=== PATIENT | male | born 1940 | race Caucasian/White ===

== ENCOUNTER 2016-07-10 12:48 | Inpatient (IN) | payer MEDICARE, BC ==
[~2016-07-10] VITALS: Ht 180.3 cm; Wt 82.7 kg
[2016-07-10] VITALS (22 sets, daily range): BP systolic 112–153; BP diastolic 58–90; Ht 180.3 cm; Wt 82.7 kg
[2016-07-10 13:48] LABS: BASOPHILS 0.3 % (0.0-2.0); EOSINOPHILS 0.2 % (0-7); HEMATOCRIT 47.9 % (42.0-54.0); HEMOGLOBIN 16.3 g/dL (13.5-17.5); IMMATURE GRANULOCYTES 0.3 % (0-5); MCH 32.7 pg (26.0-34.0); MEAN PLATELET VOLUME 11.2 fL (7.4-10.4); MONOCYTES 3.9 % (2-11); NEUTROPHILS 79.3 % (40-80); PLATELET COUNT 172 10x3/uL (130-400); RBC 4.99 10x6/uL (4.20-6.10); WBC 9.9 10x3/uL (4.8-10.8)
[2016-07-10 13:59] LABS: APTT 25.1 SECONDS (22.8-39.4); INR 0.95 (0.85-1.17); PROTIME 12.6 SECONDS (11.6-15.0)
[2016-07-10 14:06] LABS: ALBUMIN 4.3 g/dL (3.4-5.0); ANION GAP 10.8 mmol/L (8-16); BILIRUBIN - TOTAL 0.65 mg/dL (0.2-1.3); CALCIUM 9.4 mg/dL (8.5-10.1); CARBON DIOXIDE 32.1 mmol/L (21.0-32.0); CREATININE - SERUM 1.2 mg/dL (0.6-1.3); POTASSIUM - SERUM 3.9 mmol/L (3.5-5.1); PROTEIN - SERUM 8.2 g/dL (6.4-8.2)
--- NOTE | 2016-07-10 16:17 | NUR ---
REC'ED PT VIA STRETCHER FROM ER - PT C/O SLIGHT HEADACHE - IV INFUSING PER MAR
--- NOTE | 2016-07-10 16:40 | NUR ---
ASSESSMENT COMPLETE PAGED DR. SAUCEDA - RTRN CALL - INFORMED PT WAS ADMITED AND PT AND FAMILY AGREES PT IS A DNR REVIEWED HOME MEDS WITH MD. STATED TO RESTART HOME MEDS - RECONCILED MEDS PER POLICY. VSS PT DENIES ANY NEEDS AT THIS TIME. CONT POC
[2016-07-10] MEDS ORDERED: LIPITOR20 MG PO (16:41)
[2016-07-10] MEDS ORDERED: GLUCOTROL 5 MG T5 MG PO (16:41)
[2016-07-10] MEDS ORDERED: ALTACE10 MG PO (16:56)
--- NOTE | 2016-07-10 17:30 | NUR ---
DR. SAUCEDA AT BEDSIDE FOR ASSESSMENT - REC'D ORDERS (SEE MAR), MRI, ETC. SEE MD FLOW SHEET. MEDICATIONS GIVEN - PT RESTING
--- NOTE | 2016-07-10 18:00 | NUR ---
FAMILY AT BEDSIDE - BROUGHT PT'S PERSONAL CPAP FOR PT USE. HOWEVER, PT DID NOT HAVE A MASK. ASKED RESPIRATORY THEARPIST TO REVIEW IF PT COULD USE [facility] MASK. RT INSTRUCTED THIS RN TO ASK FAMILY TO TAKE CPAP HOME. FAMILY AGREED. SON ASKED IF PT COULD HAVE ATIVAN AT BEDTIME TO ALLOW HIM TO CALM DOWN TO REST. EXPLAINED MD IS R/O CVA A DEPRESSANT WOULD NOT BE NEEDED AT THIS TIME. PT AND SON VERBALIZED UNDERSTANDING. WILL FORWARD REQUEST TO ONCOMING RN IN REPORT. SON ANSWERED QUESTIONS FOR MRI PROCEDURE.
--- NOTE | 2016-07-10 18:26 | NUR ---
Patient Name: FLASH FONG Admission Status: ER Accout number: [id number] Admission Date: 07-10-2016 : 1940 Admission Diagnosis: HTN CRISIS Attending: DANYA Current LOS: 1 Anticipated DC Date: 07/13/16 Planned Disposition: Primary Insurance: MEDICARE A & B Discharge Planning Comments: CM met with patient to complete initial discharge assessment. Patient gave consent to complete assessment. Patient lives home alone and is independent in his care at home. He denied using any community resources. He stated he plans to return home at discharge and does not feel he will have any needs. Cm will continue to follow and assist as needed with dc plans/needs. Manager Of Investigations: Vani Gale Is the patient Alert and Oriented? Yes * How many steps to enter\exit or inside your home? none * PCP Dr. Cook * Pharmacy [facility] * Preadmission Environment Home Alone * ADLs Independent * Equipment CPAP Glucometer * Other Equipment patent does not wear his CPAP * List name and contact numbers for known caregivers / representatives who currently or will assist patient after discharge: Flash Fong JrErica - [facility] - [phone] * Community resources currently utilized None * Additional services required to return to the preadmission environment? No * Can the patient safely return to the preadmission environment? Yes * Has this patient been hospitalized within the prior 30 days at any hospital? No
--- NOTE | 2016-07-10 18:37 | NUR ---
SON STATED PT HAS HISTORY OF ASBESTOS IN HIS LUNGS. WANTED MD TO KNOW
--- NOTE | 2016-07-10 18:42 | NUR ---
MRI X-RAY TECH TO SPEAK TO SON TO ASK MRI ASSESSMENT QUESTIONS. SON AGREEABLE TO REVIEW.
--- NOTE | 2016-07-10 19:10 | NUR ---
ASSESSMENT COMPLETED. SEE ASSESSMENT VIA ADMIT ASSESSMENT PLACED IN COMPUTER AT 2020. O2 2LPM/NC. PUPILS PERRLA AT 3MM BILATERALLY. HAND GRAPS STRONG AND EQUAL BILATERALLY. DORSI-PLANTAR FLEXION STRONG AND EQUAL. SMILE SYMMETRICAL. DENIES NUMBNESS OR TINGLING. REPORTS HEADACHE-SEE FLOWSHEET. RT FA 20G PIV NOT INFUSING ANYTHING CURRENTLY. CLEVIPREX GTT OFF. WILL MONITOR.
--- NOTE | 2016-07-10 20:21 | NUR ---
DOCUMENTED ADMIT ASSESSMENT AT THIS TIME BUT ACTUAL ASSESSMENT TIME 1909.
--- NOTE | 2016-07-10 20:45 | NUR ---
FSBS ASSESSED. SUGAR-205. INSULIN GIVEN PRESCRIBED TO LEFT ARM. HAVING SOME EXPRESSIVE APHAGIA WHEN TELLING ME HE KNEW IT WOULD BE HIGH (HIS SUGAR) BECAUSE AND PAUSED TO THINK. TOOK LIPITOR WITH WATER WITHOUT DIFFICULTY OR COUGHING. WILL MONITOR.
--- NOTE | 2016-07-10 22:30 | NUR ---
EYES CLOSED. NO ACUTE DISTRESS NOTED. WILL MONITOR.
--- NOTE | 2016-07-10 23:05 | NUR ---
REASSESSMENT COMPLETED. SEE ASSESSMENT FLOWSHEET. NEURO ASSESSMENT UNCHANGES. AT TIMES TAKES A MINUTE TO GET HIS WORDS OUT BUT OTHERWISE NEURO INTACT. WILL MONITOR.
[2016-07-11] VITALS (13 sets, daily range): BP systolic 112–142; BP diastolic 70–89
--- NOTE | 2016-07-11 00:45 | NUR ---
NEEDING UP TO BSC TO HAVE A BM. ASSISTED. STEADY GAIT NOTED. NO BM. EMPTIED URINAL AND BSC OF CLEAR, ELEANOR URINE. BACK TO BED. NO OTHER NEEDS AT PRESENT.
--- NOTE | 2016-07-11 02:19 | NUR ---
EYES CLOSED. NO ACUTE DISTRESS NOTED. WILL MONITOR.
--- NOTE | 2016-07-11 03:20 | NUR ---
REASSESSMENT COMPLETED. SEE ASSESSMENT. NO NEURO CHANGES AT THIS TIME. REPORTS THE BED IS NOT COMFORTABLE. OFFERED BEDSIDE CHAIR. DENIED. WILL CONTINUE TO MONITOR.
--- NOTE | 2016-07-11 05:00 | NUR ---
EYES CLOSED. NO ACUTE DISTRESS NOTED. WILL MONITOR.
[2016-07-11 05:16] LABS: BASOPHILS 0.1 % (0.0-2.0); EOSINOPHILS 0.9 % (0-7); HEMATOCRIT 44.4 % (42.0-54.0); IMMATURE GRANULOCYTES 0.2 % (0-5); LYMPHOCYTES 27.2 % (15-50); MCH 32.2 pg (26.0-34.0); MCHC 33.8 g/dL (31.0-37.0); MCV 95.3 fL (80.0-100.0); MEAN PLATELET VOLUME 11.7 fL (7.4-10.4); MONOCYTES 13.1 % (2-11); NEUTROPHILS 58.5 % (40-80); PLATELET COUNT 173 10x3/uL (130-400); RBC 4.66 10x6/uL (4.20-6.10); RDW 13.2 % (11.5-14.5)
[2016-07-11 05:57] LABS: ALBUMIN 3.6 g/dL (3.4-5.0); ANION GAP 10.8 mmol/L (8-16); BILIRUBIN - TOTAL 0.6 mg/dL (0.2-1.3); CALCIUM 8.6 mg/dL (8.5-10.1); CARBON DIOXIDE 29.7 mmol/L (21.0-32.0); CHOL - HDL RATIO 4.8 ratio (2.3-4.9); CREATININE - SERUM 1.1 mg/dL (0.6-1.3); LDL-HDL RATIO 2.4 ratio (1.5-3.5); POTASSIUM - SERUM 3.5 mmol/L (3.5-5.1); PROTEIN - SERUM 7.1 g/dL (6.4-8.2)
--- NOTE | 2016-07-11 07:00 | NUR ---
REC'D CARE OF PT. A&O X3. NO NEURO DEFICITS.
--- NOTE | 2016-07-11 08:40 | NUR ---
TO MRI FOR MRI OF BRAIN.
--- NOTE | 2016-07-11 09:03 | NUR ---
FAMILY AT BEDSIDE. UPDATED.
--- NOTE | 2016-07-11 09:08 | NUR ---
BACK FROM MRI AND HOOKED UP TO CM.
--- NOTE | 2016-07-11 09:12 | NUR ---
SATTING 97% ON RA.
--- NOTE | 2016-07-11 09:46 | NUR ---
ON RA SATTING 97%. RR 20, SHALLOW EVEN AND UNLABORED. STRENGHT STRONG AND EQUAL IN UPPER EXT AND STRONG AND EQUAL IN LOWER EXT. NO NEURO DEFICITS. GETS SELF UP AND SETS ON SOB. DENIES NEEDS. RIGHT FOREARM PIV SL. NO S/S OF INFECTION. OR INFILTRATION. A&O X4. PPP. CLWR. CPOC.
--- NOTE | 2016-07-11 10:45 | NUR ---
OOB TO BEDSIDE COMMODE. HAD SMEAR OF A STOOL. 50 CC URINE.
--- NOTE | 2016-07-11 11:02 | NUR ---
AMBULATED 250 FEET WITH PT AND BACK IN CHAIR.
[2016-07-11] MEDS ORDERED: LOW DOSE ASPIRI81 M1 PO (12:52)
--- NOTE | 2016-07-11 13:56 | NUR ---
REVIEWED DISCHARGE INSTRUCTIONS AND HOME MEDS. DANE REVIEWED CHART. EVERYTHING READY FOR HIM TO GO HOME. DC'D RIGHT FOREARM PIV.
== END 2016-07-11 14:27 | disposition home or self-care (01) | DRG 305 ==
LOC: D.ER 12:48 → D.ICU 15:39
PROVIDERS: Emergency Medicine; ADMIT Family Medicine
DX: I16.0 Hypertensive urgency (principal); R47.01 Aphasia; E78.5 Hyperlipidemia, unspecified; Z66 Do not resuscitate; E11.9 Type 2 diabetes mellitus without complications; I25.10 Atherosclerotic heart disease of native coronary artery without angina pectoris

== ENCOUNTER 2016-07-11 18:06 | Emergency (ER) | payer MEDICARE, BC ==
[2016-07-10 20:21] VITALS: BMI 25.4
[~2016-07-11 18:06] MED LIST: ALTACE10 MG PO; GLUCOTROL 5 MG T5 MG PO; LIPITOR20 MG PO; LOW DOSE ASPIRI81 M1 PO
== END 2016-07-11 19:14 | disposition home or self-care (01) ==
LOC: D.ER 18:06
DX: I10 Essential (primary) hypertension (principal); E11.9 Type 2 diabetes mellitus without complications; E78.5 Hyperlipidemia, unspecified

== ENCOUNTER → 2016-08-24 07:30 | Outpatient (CLI) | payer MEDICARE, BC ==
[2016-07-10 20:21] VITALS: BMI 25.4
== END | disposition home or self-care (01) ==
LOC: D.RAD 07:30
DX: R11.10 Vomiting, unspecified (principal)

== ENCOUNTER → 2016-12-08 13:38 | Outpatient (CLI) | payer MEDICARE, BC ==
[2016-07-10 20:21] VITALS: BMI 25.4
== END | disposition home or self-care (01) ==
LOC: D.CT 13:38
DX: R10.9 Unspecified abdominal pain (principal)

== ENCOUNTER → 2017-01-20 15:17 | Outpatient (CLI) | payer MEDICARE ==
[2016-07-10 20:21] VITALS: BMI 25.4
== END | disposition home or self-care (01) ==
LOC: D.LABREF 15:17
DX: R31.9 Hematuria, unspecified (principal)

== ENCOUNTER 2017-02-17 05:33 | Day surgery (SDC) | payer MEDICARE, BC ==
[2017-02-16 13:48] LABS: HEMATOCRIT 42.2 % (42.0-54.0); HEMOGLOBIN 14.4 g/dL (13.5-17.5); MCH 33.2 pg (26.0-34.0); MCHC 34.1 g/dL (31.0-37.0); MCV 97.2 fL (80.0-100.0); MEAN PLATELET VOLUME 10.8 fL (7.4-10.4); RBC 4.34 10x6/uL (4.20-6.10); RDW 13.5 % (11.5-14.5); WBC 5.8 10x3/uL (4.8-10.8)
[2017-02-16 14:05] LABS: ANION GAP 13.7 mmol/L (8-16); CALCIUM 8.8 mg/dL (8.5-10.1); CARBON DIOXIDE 29.8 mmol/L (21.0-32.0); CREATININE - SERUM 1.5 mg/dL (0.6-1.3); POTASSIUM - SERUM 4.5 mmol/L (3.5-5.1)
[~2017-02-17] VITALS: Ht 180.3 cm; Wt 88.0 kg
[~2017-02-17 05:33] MED LIST changes: +ACTOS45 MG PO; +LISINOPRIL10 MG PO; +THORAZINE25 MG PO
[2017-02-17 06:57] VITALS: BP 129/71; Ht 180.3 cm; Wt 88.0 kg
--- NOTE | 2017-02-17 12:29 | OP ---
PATIENT NAME: RICKI FONG MEDICAL RECORD: [id number] :39 LOCATION:[facility] ADMISSION DATE: SURGEON: RALPH RENEE MD DATE OF OPERATION: 02/17/2017 SURGEON: Ralph Renee MD. ANESTHESIA: MAC by Araceli Rodriguez CRNA. PREOPERATIVE DIAGNOSIS: Right renal stone, 8 mm. PROCEDURES: Cystoscopy and bladder stone removal. FINDINGS: Obstructive prostate with median lobe and bladder neck obstruction. Heavily trabeculated bladder with diverticula and a 7-8 mm bladder stone. Unable to find the ureteral orifices due to bleeding from prostatic veins. Radiodense right lower pole renal stone. SPECIMEN: Bladder stone. ESTIMATED BLOOD LOSS: Minimal. CLINICAL HISTORY: This is a 76-year-old male with a prior history of microhematuria and kidney stones. CT scan shows a distal esophagitis, sigmoid diverticulosis, degenerative disc disease of the lumbar spine. He also has an 8-mm right lower pole renal stone, which is not obstructive. The prostate is enlarged and there are stones in the prostate. His PSA is 3.05. He does have significant voiding problems including daytime frequency and nocturia times 3. He has hesitancy in getting started and a very slow flow. He feels that he is not fully emptying his bladder. He comes now to have cystoscopy to complete his hematuria workup as well as insertion of right ureteral stent and right ESWL of the renal stone later today. He is not allergic to any medication. He was given Ancef 2 grams IV contracts paralegal to the OR. DESCRIPTION OF PROCEDURE: The patient was given IV sedation. He was placed in the dorsal lithotomy position, prepped and draped. A 21-American cystoscope with 30-degree lens was used for visualization. Findings of cystoscopy are as outlined above. Once we passed the scope through the rather vascular prostate, he started having bleeding into the bladder which made the vision inside the bladder very difficult. The bladder was also very heavily trabeculated and it was virtually impossible to find his ureteral orifice. The stone was seen. Flexible grasping forceps were placed and they were able to trap the stone. The stone was too large to pass through the cystoscope and so the whole unit had to be removed with the stone still in the grasper. The stone was sent to pathology for stone analysis. Going back into the bladder, I attempted to irrigate out the bladder several times and trying to find the ureteral orifice, but I was unsuccessful. No bladder tumors were seen. He will have to have the lithotripsy done and pass the stone fragments without benefit of a stent. At a later date, he will need a TURP of his prostate. TRANSINT:[id number] Voice Confirmation ID: [id number] DOCUMENT ID: [id number] OPERATIVE REPORT [id number] RICKI FONG, RALPH Topete MD at 1229 CC: [id number] DICTATION DATE: 02/17/1736 SHREDDED FILLER HOPPER FEEDER: 02/17/17 1036 [facility] [address] [place] [id number]
--- NOTE | 2017-02-17 14:10 | OP ---
PATIENT NAME: RICKI FONG MEDICAL RECORD: [id number] :39 LOCATION:[facility] ADMISSION DATE: SURGEON: RALPH RENEE MD DATE OF OPERATION: 02/17/2017 SURGEON: Ralph Renee MD. ANESTHESIA: MAC by Liliya Ferris CRNA. PREOPERATIVE DIAGNOSIS: Right renal stone, 8 mm. POSTOPERATIVE DIAGNOSIS: Right renal stone, 8 mm. FINDINGS: Radiodense right renal stone. PROCEDURE: Right ESWL times 3000 shocks. BLOOD LOSS: None. CLINICAL HISTORY: This is a 76-year-old male with an 8-mm right renal stone. Earlier today, he underwent cystoscopy with the view to try to place a right ureteral stent. I was unable to place a right ureteral stent. A bladder stone was noted from obstructive BPH and the bladder stone was removed instead. He comes now to have the kidney stone treated with ESWL. DESCRIPTION OF PROCEDURE: The patient was placed on the treatment table. The stone was visualized as radiodensity and it was targeted in 2 planes; 3000 shocks were given to the stone that was seen to break up. The patient will be going home today with a prescription for [place] 5/325 times 30 tablets with no refills. I will see him in followup in 2 weeks' time with a KUB. TRANSINT:[id number] Voice Confirmation ID: [id number] DOCUMENT ID: [id number] RALPH RENEE MD at 1410 CC: [id number] DICTATION DATE: 02/17/17 1233 HOUSING INSTALLER: 02/17/[address] [facility] 02/17/17 [place] [id number] [place] [id number]
== END 2017-02-17 13:25 | disposition home or self-care (01) ==
LOC: D.OPS 05:33 → D.PAN 07:30 → D.OPS 07:30 → D.PAN 08:20 → D.OPS 08:20
PROVIDERS: Anesthesiology; Urology
DX: N20.0 Calculus of kidney (principal); N40.1 Benign prostatic hyperplasia with lower urinary tract symptoms; R31.21 Asymptomatic microscopic hematuria; N21.0 Calculus in bladder; Z01.812 Encounter for preprocedural laboratory examination

== ENCOUNTER → 2017-02-21 17:57 | Outpatient (CLI) | payer MEDICARE, BC ==
[2017-02-17 06:57] VITALS: BMI 27.1
[2017-02-21 18:44] LABS: APPEARANCE CLOUDY (CLEAR); COLOR BROWN (YELLOW); LEUKOCYTE ESTERASE NEGATIVE (NEGATIVE); NITRITE NEGATIVE (NEGATIVE); PROTEIN TRACE mg/dL (NEGATIVE); SPECIFIC GRAVITY 1.025 (1.005-1.020)
[2017-02-21 18:45] LABS: BILIRUBIN NEGATIVE (NEGATIVE); GLUCOSE NEGATIVE (NEGATIVE); KETONE NEGATIVE (NEGATIVE); UROBILINOGEN NORMAL (NORMAL)
[2017-02-21 18:46] LABS: BACTERIA FEW /hpf (NONE SEEN); EPITHELIAL CELLS 0-5 /hpf (0-5); RED CELLS - URINE >50 /hpf (0-5); WHITE CELLS - URINE 0-5 /hpf (0-5)
[2017-02-21 18:47] LABS: AMORPHOUS SEDIMENT <1+ /lpf (NONE SEEN)
== END | disposition home or self-care (01) ==
LOC: D.LABREF 17:57
PROVIDERS: Urology
DX: N39.0 Urinary tract infection, site not specified (principal)

== ENCOUNTER → 2017-03-01 13:24 | Outpatient (CLI) | payer MEDICARE, BC ==
[2017-02-17 06:57] VITALS: BMI 27.1
== END | disposition home or self-care (01) ==
LOC: D.NM 13:24
DX: R11.2 Nausea with vomiting, unspecified (principal); R10.9 Unspecified abdominal pain

== ENCOUNTER → 2017-03-04 09:00 | Outpatient (CLI) | payer MEDICARE, BC ==
[2017-02-17 06:57] VITALS: BMI 27.1
== END | disposition home or self-care (01) ==
LOC: D.RAD 09:00
DX: N20.0 Calculus of kidney (principal)

== ENCOUNTER 2017-03-31 05:44 | Day surgery (SDC) | payer MEDICARE, BC ==
[2017-03-30 08:37] LABS: ANION GAP 13.6 mmol/L (8-16); CALCIUM 9.1 mg/dL (8.5-10.1); CARBON DIOXIDE 29.9 mmol/L (21.0-32.0); CREATININE - SERUM 1.4 mg/dL (0.6-1.3); POTASSIUM - SERUM 4.5 mmol/L (3.5-5.1)
[2017-03-30 08:49] LABS: HEMATOCRIT 44.1 % (42.0-54.0); HEMOGLOBIN 14.4 g/dL (13.5-17.5); MCH 32.4 pg (26.0-34.0); MCHC 32.7 g/dL (31.0-37.0); MCV 99.3 fL (80.0-100.0); RBC 4.44 10x6/uL (4.20-6.10); RDW 13.6 % (11.5-14.5); WBC 5.9 10x3/uL (4.8-10.8)
[~2017-03-31 05:44] MED LIST changes: +ZYLOPRIM300 MG PO
[2017-03-31 07:15] VITALS: BP 135/84; BMI 26.4
--- NOTE | 2017-03-31 15:12 | OP ---
PATIENT NAME: RICKI FONG MEDICAL RECORD: [id number] :39 [facility] ADMISSION DATE: SURGEON: RALPH RENEE MD DATE OF OPERATION: 03/31/2017 SURGEON: Ralph Renee MD ANESTHESIA: General anesthesia by Dr. Higginbotham. PREOPERATIVE DIAGNOSIS: Obstructive benign prostatic hyperplasia. FINDINGS: Trilobar hyperplasia of the prostate, heavily trabeculated bladder. No bladder tumors. PROCEDURES: Cystoscopy, GreenLight laser transurethral resection of the prostate, power 80 todd laser on time 13 minutes 54 seconds, energy 61,598 joules. SPECIMEN: None. CLINICAL HISTORY: This is a 76-year-old male whom I initially saw earlier this year when he presented with right renal colic. The renal colic was due to an 8 mm right renal stone. When I performed cystoscopy with a view to placing a stent, I could not find his ureteral orifices. He did have a very obstructive prostate and he also had a stone in the bladder. I removed the stone with graspers and the stone analysis showed that it was 75% calcium oxalate, +5% calcium phosphate, +20% uric acid. The kidney stone was treated with right ESWL. He comes now to have the prostate resected as he has quite significant obstructive voiding symptoms. He is not allergic to any medications. He was given Ancef 2 grams IV employee relations administrator to the OR. DESCRIPTION OF PROCEDURE: The patient was given induction of general anesthesia. He was then placed in the dorsal lithotomy position and prepped and draped. The laser resectoscope was introduced using the visual obturator. The penile urethra shows no obstruction. 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 Going into the prostate, he has a clearly defined verumontanum. The lateral lobes were quite large and obstructive. The bladder neck was also very tall and obstructive. Going into the bladder, the bladder was very heavily trabeculated. No bladder tumors were seen. I could not find the ureteral orifices, but from his previous stent removal, the ureteral orifices were quite distant and high up on the lateral wall of the bladder. We introduced the laser fiber and used 80 todd of power. The resection was kept between the bladder neck to just proximal to the verumontanum. As the tissue absorbed the laser energy very well, I did not need to increase the power level at all. The resection was done down to the pseudocapsule of the prostate all around. No bladder stones were uncovered. At the end of the procedure, any small venous bleeding was treated with the laser on the coagulation setting. There was no visible bleeding at the end of the procedure. There was a good channel all the way through from the apex of the prostate through to the bladder neck. A 20-Omani 3-way Riggs catheter was then introduced into the bladder. A 30 cc syringe was used to fill the balloon with water. The catheter was then put to bag drainage. The catheter plug was placed into the inflow port to prevent leakage from the inflow port. The patient will be going home today with the catheter to bag drainage. I will see him in followup tomorrow in the office to remove his catheter for a voiding trial. OPERATIVE REPORT [id number] RICKI FONG TRANSINT:[id number] Voice Confirmation ID: [id number] DOCUMENT ID: [id number] RALPH RENEE MD at 1512 CC: [id number] DICTATION DATE: 03/31/17 1355 GEOGRAPHIC AREA INTELLIGENCE OFFICER: 03/31/17 1416 [facility] [address] [place] [address]
== END 2017-03-31 15:30 | disposition home or self-care (01) ==
LOC: D.OPS 05:44 → D.PAN 08:15 → D.OPS 08:15
PROVIDERS: Anesthesiology
DX: N40.1 Benign prostatic hyperplasia with lower urinary tract symptoms (principal); I25.10 Atherosclerotic heart disease of native coronary artery without angina pectoris; I10 Essential (primary) hypertension; E11.9 Type 2 diabetes mellitus without complications; Z01.812 Encounter for preprocedural laboratory examination

== ENCOUNTER → 2017-06-28 16:32 | Outpatient (CLI) | payer MEDICARE, BC | END | disposition home or self-care (01) | LOC: D.LABREF 16:32 | DX: N39.0 Urinary tract infection, site not specified (principal) ==

== ENCOUNTER → 2019-08-07 07:47 | Outpatient (CLI) | payer MEDICARE, BC | END | disposition home or self-care (01) | LOC: D.MRI 07:47 | PROVIDERS: ATTEND Orthopaedic Surgery | DX: M75.122 Complete rotator cuff tear or rupture of left shoulder, not specified as traumatic (principal) ==